=== PATIENT | female | born 1940 | race Caucasian/White ===

== ENCOUNTER 2024-01-04 22:51 | Inpatient (IN) | payer MEDICARE, OTHER, SELFPAY ==
--- NOTE | 2024-01-04 21:56 | XACV_ITS ---
Exam Room: [facility] Ht: 157 cm Wt: 73 kg BSA: 1.81 m2 Gender: Female : 1940 Any Known Allergies: No known allergies Exam Priority: Routine Procedure(s): Procedure Description: Diagnostic procedure Procedure Description: PCI procedure Procedure Description: Venous Graft Catheterization Procedure Description: ALEJO Graft Catheterization Procedure Description: Drug Eluting Coronary Stent Procedure Description: PTCA Procedure Description: Miscellaneous Procedure Description: ACT Procedure Description: Coronary Angiography Diagnostic Cath Status: Urgent Diagnostic Findings * INDICATION: NSTEMI/ Congestive heart failure/pulmonary edema. * Left Main has no significant disease. * Bypass grafts: * ALEJO to LAD * is atretic and does not supply any significant area. SVG to OM is occluded. SVG/radial graft to RCA is patent.. * Proximal Left Anterior Descending: critical 95% stenosis, MAREK: 3 flow. * Proximal Right Coronary Artery to Mid Right Coronary Artery: total occlusion, MAREK: 0 flow. * Distal Circumflex: critical 95% stenosis, MAREK: 2 flow. * 1st Diagonal: severe 90% stenosis, MAREK: 3 flow. * Coronary angiography shows right dominance. PCI Status: Urgent PCI Indication: NSTE - ACS Interventional Findings * Procedure detail: * We engaged left main artery with XB 3.5 guide catheter. IV heparin was administered to maintain anticoagulation. 0.014 run-through guidewire was used to first cross distal left circumflex artery stenosis * and was put in distal vessel. * We predilated the stenosis with 2.0 x 12 mm semicompliant balloon. This was followed by placement of 2.25 x 18 mm resolute Gl[place]y drug-eluting stent. We then turned our attention to LAD. Run-through guidewire was used to cross the stenosis and was put in distal vessel. We predilated the stenosis with 2.5x15 mm semicompliant balloon. This was followed by placement of 2.75 x 30 mm resolute Frakes drug-eluting stent in proximal LAD. At this time final angiogram was performed that showed excellent stent expansion, no residual stenosis and MAREK-3 flow. Guidewire and guide catheter were removed. Patient left the Motor Adjuster in a stable condition.. * Proximal Left Anterior Descendin% stenosis treated with a AB TREK 2.50X15 RX BALLOON, and MDT R GLENDY 2.75X30 PEGGY. 0% residual stenosis, MAREK: 3 flow. * Distal Circumflex: 95% stenosis treated with a AB MINI TREK 2.00X12 RX BALLOON, and MDT R GLENDY 2.25X18 PEGGY. 0% residual stenosis, MAREK: 3 flow. Conclusions 1. Critical proximal LAD 2. stenosis s/p successful revascularization with 1 stent. Critical 3. distal left circumflex artery stenosis. S/p revascularization with 1 stent.. 4. ALEJO to LAD is atretic. SVG to OM is occluded. RCA bypass graft is patent. 5. Proximal Left Anterior Descending was treated with a Balloon, and Drug Eluting Stent. 6. Distal Circumflex was treated with a Balloon, and Drug Eluting Stent. Recommendations * Dual antiplatelet therapy with aspirin and plavix. * High intensity statin therapy. * Outpatient cardiology follow up in 4 weeks. Interventional RX Recommendation: PCI w/o planned CABG Diagnostic RX Recommendation: PCI w/o planned CABG Anticoagulation: Heparin Pressures Phase:Rest AO : 112 / 64 ( 86 ) @ 6:12:42 PM 91 / 59 ( 75 ) @ 6:12:42 PM 149 / 61 ( 88 ) @ 6:12:42 PM 106 / 70 ( 81 ) @ 6:12:42 PM 96 / 55 ( 74 ) @ 6:12:42 PM Clinical Evaluation EBL: 5mL-10mL Procedural Details Procedure Consent Obtained. Pre-Procedure Time Out. Identified patient by full name and date of as verbalized by the patient/guarantor. Does the consent match the physician's order: Yes. Accurate & Complete Informed Consent: Yes. Inpatient/Outpatient History & Physical on Chart: Yes. If H&P is completed, is and addenduem needed: N/A; If yes, is the addendum complete: N/A. Visualize and Verify Site with Patient/Guarantor: N/A. Relevant Radiology Images available: N/A. The risks, benefits, and alternatives of sedation and/or procedure were discussed by physician. The patient agrees to continue. Procedure started. [facility] Clinical Fraility Score: 4: Vulnerable. Motor Adjuster Indications: ACS <= 24 hours/Unstable angina. Chest Pain Symptom Assessment: Typical Angina Symptoms. Cardiovascular Instability: No. Correct patient, site and procedure confirmed by cath team. PERRLA. Strong, equal hand it security administrator bilaterally. Lungs clear x 5 lobes. IV Site on Arrival: 20 gauge in the right hand. IV Site on Arrival: 22 gauge in the right anticubital. IV Fluids: 0.9% NaCl at KVO. 0 mL infused prior to lab asst. Pre Procedural Pulses: bilateral posterior tibial was Doppled. Pre Procedural Pulses: bilateral dorsalis pedis was Doppled. Oxygen started at 2liters/min via nasal canula. bilateral groins was prepped with chloroprep then draped in the usual sterile fashion. Physician notified. Baseline sample Acquired. HR: 87 BPM. Patient's family in the lab asst waiting room. Dr. Bower will update at the completion of the procedure. Equipment: 6F - Femoral. Cardiac Cath Pack. ACIST Manifold Kit Model BT 2000. Heparinized Saline (2 units/mL), 1000 mL bag. Kit, Micropuncture. Physician arrived. Physician scrubbed in. Immediate Pre-Procedure Time Out. Correct Patient: Yes; Correct Procedure: Yes; Correct Site: Yes; Correct Patient Position: Yes; Correct Supplies: Yes; Dried Flammable Prep: Yes; Blood Products Available: N/A;. Lidocaine 1% infiltrated to the right groin. Arterial access obtained with micropuncture set. A 5 lithuanian JL4 catheter in over the standard J wire. Multiple views taken of left coronary artery. O2 increased to a 100% NRB mask. Catheter removed over the standard wire. A 5 lithuanian JR4 catheter in over the standard J wire. Cine of the right coronary artery performed. Catheter redirected to the SVG-->RCA. SVG to RCA visualized. Catheter redirected to the RCA. Cine of the right coronary artery performed. Catheter redirected to the SVG-->CX. SVG to the CX occluded. Catheter redirected to the ALEJO-->LAD. ALEJO to LAD visualized. Catheter removed over the standard J wire. 6 lithuanian XB 3.5 guide catheter was inserted over the standrad J wire. Runthrough guidewire was advanced through the guide catheter to lesion in the distal Circ. ACT drawn. Results 223 seconds. Therapeutic limits - pre-heparin administration 90-150 seconds and monitoring heparin during a vascular procedure >250 seconds. Inflation number : 1 A AB MINI TREK 2.00X12 RX BALLOON was prepped and advanced across the Dist CX , then inflated to 8 VICKIE for 0:12 seconds. Inflation number: 2 The AB MINI TREK 2.00X12 RX BALLOON was reinflated across the Dist CX, to 8 VICKIE for 0:11 seconds. Inflation number: 3 The AB MINI TREK 2.00X12 RX BALLOON was reinflated across the Dist CX, to 8 VICKIE for 0:10 seconds. Inflation number: 4 The AB MINI TREK 2.00X12 RX BALLOON was reinflated across the Dist CX, to 10 VICKIE for 0:12 seconds. Balloon out. Results checked. Inflation Number : 5 A MDT R GLENDY 2.25X18 PEGGY -Lot Number# [id number] was prepped and advanced across the Dist CX. The stent was deployed at 12 VICKIE for 0:18 seconds. Exp. . Stent balloon out over wire. Results checked. Redirecting the Runthrough guidewire to the Prox LAD. Runthrough wire out. A new Runthrough guidewire was advanced through the guide catheter to lesion in the prox LAD. Inflation number : 1 A AB TREK 2.50X15 RX BALLOON was prepped and advanced across the Prox LAD , then inflated to 8 VICKIE for 0:16 seconds. Inflation number: 2 The AB TREK 2.50X15 RX BALLOON was reinflated across the Prox LAD, to 8 VICKIE for 0:07 seconds. Balloon out. Results checked. Inflation Number : 3 A MDAmira Leavitt GLENDY 2.75X30 PEGGY -Lot Number# [id number] was prepped and advanced across the Prox LAD. The stent was deployed at 12 VICKIE for 0:19 seconds. Exp. . Stent balloon out over wire. Results checked. ACT drawn. Results Out of range High. Guide catheter out over the standard J wire. right groin was prepped with chloroprep then draped in the usual sterile fashion. A Angio-Seal VIP (St. Del) was successful obtaining hemostatsis at the Right Femoral artery insertion site . Lot # [id number]. Exp. . O2 titrated back down throughout the procedure to 10 L via oxy mask. Post Procedure: Pulses reassessed and unchanged. PERRLA. Strong, equal hand it security administrator bilaterally. No VTE prophylaxis required. Medication's Wasted: Nitro = 50 mg. Medication's Wasted: Heparin = 2000 Units. Medication's Wasted: Other = Fentanyl 100 mcg. Total IV fluids: 78 mL. Post-op diagnosis: Critically severe Proximal LAD stenosis s/p PCI with one stent/Critically severe stenosis of the Distal CX s/p one stent. Complications: none. Estimated blood loss: 5mL-10mL. Responsiveness - Normal response to verbal stimuli; alert and oriented, PERRLA. Airway - Unaffected, no intervention required; spontaneous ventilation. Circulation: W/N/L, pulses unchanged. Nausea/Vomiting: No. Procedure completed. Patient transferred by bed to ICU. O2 increased to 10 L via Oximask. Vital chart was stopped. Access Site Site: Right Femoral artery Sheath Size: 6 Fr Hemostasis Method: Angio-Seal VIP (St. Del) Hemostasis Success: Successful Procedure Medications Start: 11:03 PM Stop: 11:03 PM Medication: Versed Amount: 1 mg Route: I.V. Start: 11:08 PM Stop: 11:08 PM Medication: Heparin Amount: 6000 units Route: I.V. Start: 11:24 PM Stop: 11:24 PM Medication: Versed Amount: 1 mg Route: I.V. Start: 11:27 PM Stop: 11: PM Medication: Heparin Amount: 2000 units Route: I.V. Start: 11:40 PM Stop: 11:40 PM Medication: Heparin Amount: 1000 units Route: I.V. Start: 12:02 AM Stop: 12:02 AM Medication: Plavix Amount: 300 mg Route: P.O. I, the attending physician, have reviewed and verified all procedure medications. Yes, all medications given per verbal order Report Signatures Finalized by Antonio Bower MD on 01/16/2024 12:05 PM
[2024-01-05] VITALS (57 sets, daily range): BP systolic 107–152; BP diastolic 51–83; PULSE 69–102; RESP 13–33; TEMP 35.7–36.9; O2SAT 61–96; BMI 29.4; BMI 30.6
--- NOTE | 2024-01-05 00:12 | PM.HP ---
Providers/Chief Complaint Admitting Physician: Antonio Bower M.D Primary Care Provider: Kasey Tejada MD Chief Complaint: Chest pain History of Present Illness Esperanza Camejo is a 83 year old female with past medical history of CAD s/p CABG several years ago, hypertension, gout, seizures who is transferred from outside hospital with concern of possible STEMI. Patient has been having shortness of breath for 4 to 5 days. It was worsening and today got significantly worse than before. EKG showed Q waves in inferior leads with questionable borderline ST elevation. Patient denies chest pain. Given worsening shortness of breath with dynamic EKG changes, we decided to proceed with urgent coronary angiogram. She also has been having nausea. Labs from outside hospital demonstrate creatinine is normal. He had a mildly elevated troponin of 0.08. NT proBNP was over 700. Review of Systems Narrative: CONSTITUTIONAL: No fever chills weight loss or gain or night sweats. [] HEENT: Normocephalic, atraumatic.[] RESPIRATORY: Shortness of breath CARDIOVASCULAR: Has shortness of breath GI: Has nausea FELT TIPPING MACHINE TENDER: No numbness, tingling, weakness or loss of function in any part of the body. [] MUSCULOSKELETAL: No knee or joint pain or rashes. [] Medications/Allergies Allergies Allergy/AdvReac Type Severity Reaction Status Date / Time No Known Allergies Allergy Verified 01/05/24 00:26 PFSH Acute PFSH: Medical History Frequent UTI Bladder prolapse Epilepsy Surgical History H/O cystopexy H/O: hysterectomy Hx of CABG Hx of total knee arthroplasty Family History Other CAD (coronary artery disease) Diabetes Social History Smoking and tobacco/nicotine status: never used tobacco/nicotine Alcohol intake: never Substance/Drug Use: never Marital status: / Physical Exam Narrative: GENERAL: Patient is alert, awake and oriented x3. [] NECK: No jugular vein distension. [] HEENT: No cyanosis. No icterus. No pallor. [] HEART: Regular S1 and S2. No murmur, rub or gallop. [] LUNGS: Diminshed air entry CENTRAL NERVOUS SYSTEM: Grossly nonfocal. [] EXTREMITIES: Lower extremities with 1+ edema bilaterally. A&P Assessment and plan (1) NSTEMI (non-ST elevated myocardial infarction): (2) Hypertension: (3) Seizures: Plan Patient symptoms have been going on for 4 to 5 days. EKG is showing inferior lead Q waves borderline ST elevation. However it is not consistent with ST elevation AK. We will proceed with urgent coronary angiogram. With mild elevation of troponin, presentation is consistent with NSTEMI. Loaded with aspirin and Plavix. Heparin bolus given. We will order echocardiogram. Will consult medicine team for medical management. Will administer Lasix dose. We will obtain labs including CBC, BMP, NT proBNP, D-dimer Attestations Medical Necessity Statement*: Care expected to cross 2 midnights. Patient has presented with NSTEMI and worsening shortness of breath. Plan for urgent coronary angiogram. Coding Level of Care Code Acute Code for Chg Fwd Diagnoses NSTEMI (non-ST elevated myocardial infarction) I21.4 Hypertension I10 Seizures R56.9
--- NOTE | 2024-01-05 00:13 | USCV_ITS ---
Esperanza Camejo Age: 83 Gender: F : 1940 Exam Date: 01/05/2024 08:31 Ordering Phys: Antonio Bower M.D ([email or web address]) Technologist: Steven Hammer [place] [facility] [place]: [place]I BP: 117 / 60 HR: Rhythm: Sinus Technical Quality: Adequate MEASUREMENTS (Male / Female) Normal Values 2D ECHO LVOT Diameter 2.0 cm LV Ejection Fraction MOD 2C 40.7 % LV Ejection Fraction 2C AL 0.0 % LA Diameter 3.8 cm RA Systolic Volume 4C AL 32.1 ml RA Systolic Volume 4C MOD 30.8 ml Aorta at Sinotubular Diameter 2.4 cm IVC Diameter 1.8 cm M-MODE LA Ao Ratio MM 1.3 AV Cusp Separation MM 1.7 cm DOPPLER AV Peak Velocity 141.0 cm/s LVOT Peak Velocity 117.0 cm/s AV Area Cont Eq vti 2.5 cm squared AV Area Cont Eq pk 2.6 cm squared MV Peak Velocity 499.0 cm/s MV Area PHT 4.5 cm squared Mitral E to A Ratio 2.0 TR Peak Velocity 247.0 cm/s TR Peak Gradient 24.4 mmHg TR Mean Velocity 186.0 cm/s TR Mean Gradient 15.4 mmHg TR Velocity Time Integral 53.0 cm PV Peak Velocity 133.0 cm/s RV Ejection Time 0.3 s FINDINGS Left Ventricle Left ventricle is normal size. LV systolic function is severely reduced with EF of 25-30%. Severe global hypokinesis. LV apical thrombus can not be ruled out Right Ventricle Normal in size. RV is moderately hypokinetic Right Atrium Normal in size Left Atrium Normal in size Mitral Valve Structurally normal mitral valve. Mild to moderate mitral regurgitation. Aortic Valve Grossly normal. Mild to moderate aortic regurgitation. Tricuspid Valve Mild tricuspid regurgitation. Insufficient TR jet to evaluate RVSP. Pulmonic Valve Not well visualized Pericardium Normal Aorta Normal in size IVC Appears to be normal CONCLUSIONS LV systolic function is severely reduced with EF of 25 to 30%. LV apical thrombus can not be ruled out. RV is moderately hypokinetic. Mild to moderate mitral regurgitation Mild to moderate aortic regurgitation Mild tricuspid regurgitation No comparison studies are available. Antonio Bower MD (Electronically Signed) Final Date: 05 January 2024 11:14 S
--- NOTE | 2024-01-05 00:13 | XRR_ITS ---
PROCEDURE INFORMATION: Exam: XR Chest Exam date and time: 01/05/2024 12:52 AM Age: 83 years old Clinical indication: Dyspnea; Additional info: Shortness of breath TECHNIQUE: Imaging protocol: Radiologic exam of the chest. Views: 1 view. COMPARISON: CR XR chest 2V* [id number] 07/20/2017 12:28 PM FINDINGS: Lungs: There is diffuse increase in interstitial markings. There is reticular/patchy opacification right middle lobe and left lower lobe/retrocardiac region. Pleural spaces: There is ellkb-[id number]-aksd-left blunting costophrenic angles. Heart/Mediastinum: There is interval increase in prominence of the cardiomediastinal silhouette. Bones/joints: Patient is status post sternotomy. Diffuse degenerative changes of the visualized osseous structures. Other findings: Multiple lines presumed outside the patient. There is bilateral hilar prominence. XR/XR chest 1V portable [id number] IMPRESSION: 1. Bilateral central hilar prominence, diffuse increase in interstitial markings, iqmpm-qpkvekv-wqqz-left small pleural effusions, reticular/patchy infiltrates of the right middle lobe and left lower lobe/retrocardiac region, findings of which are concerning for pulmonary edema, multifocal pneumonia, aspiration. Correlate with clinical presentation. 2. Interval increase in prominence of the cardiac silhouette, which may be due to positioning, however comparative radiograph has similar positioning, therefore acute pericardial effusion can not be ruled out, correlate with ultrasound if available.
[2024-01-05] MEDS: FUROsemide 10 mg/mL SDV 2mL 20 MG IVP (00:35)
--- NOTE | 2024-01-05 00:40 | ECG_ITS ---
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 Measurements Intervals Cowley Rate: 89 P: 48 GA: 191 QRS: 60 QRSD: 107 T: 61 QT: 371 QTc: 452 Interpretive Statements SINUS RHYTHM INFERIOR MYOCARDIAL INFARCTION , PROBABLY OLD [40+ ms Q WAVE AND/OR ST/T ABNORMALITY IN II/aVF] ANTEROLATERAL MYOCARDIAL INFARCTION , OF INDETERMINATE AGE [40+ ms Q WAVE IN I/aVL/V3-V6] Compared to ECG 07/20/2017 10:59:01 No significant changes Electronically Signed On 01-05-2024 10:10:49 DISPATCHER MOTOR VEHICLE by Antonio Bower M.D. [id number]
--- NOTE | 2024-01-05 00:42 | P.MISC_ITS ---
Miscellaneous Note Purpose of Documentation: Brief procedure note Note: [place] left main artery is patent. Proximal LAD has severe 95% stenosis. Status post PCI with 1 stent. Distal left circumflex artery had severe 95-99% stenosis. S/p PCI with 1 stent. [place] RCA is occluded with patent bypass graft. ALEJO to LAD is atretic not supplying any significant blood flow. SVG to circumflex artery is occluded. Transfer to ICU Dual antiplatelet therapy with aspirin and plavix Rest of plan per H&P
--- NOTE | 2024-01-05 01:14 | USR_ITS ---
PROCEDURE INFORMATION: Exam: US Duplex Lower Extremity Veins, Bilateral Exam date and time: 01/05/2024 8:10 AM Age: 83 years old Clinical indication: Screening exam; Assess for dvt TECHNIQUE: Imaging protocol: Real-time duplex ultrasound of the bilateral extremities with 2-D corona scale, color Doppler flow and spectral waveform analysis including responses to compression and other maneuvers (when performed) with image documentation. Complete exam focused on the lower extremity veins. COMPARISON: No relevant prior studies available. FINDINGS: Right deep veins: Unremarkable. The common femoral, femoral, proximal profunda femoral and popliteal veins are patent without thrombus. Normal Doppler waveforms. Normal compressibility and/or augmentation response. Left deep veins: Unremarkable. The common femoral, femoral, proximal profunda femoral and popliteal veins are patent without thrombus. Normal Doppler waveforms. Normal compressibility and/or augmentation response. Superficial veins: Greater saphenous veins at the saphenofemoral junctions are patent bilaterally without thrombus. Soft tissues: Unremarkable. US/[place] [id number] IMPRESSION: No evidence of deep vein thrombosis.
--- NOTE | 2024-01-05 01:14 | P.CONIM_ITS ---
Providers/Reason For Consult 2 Consulting Physician/Specialty*: Dr Bower/cardiology Reason for Consult*: Medical workup Attending Physician: Antonio Bower M.D Primary Care Provider: Kasey Tejada MD History of Present Illness History of Present Illness Pleasant 83-year-old lady with history of epilepsy, gout, CAD, status post CABG, mild chronic dyspnea had started to get much more dyspneic on exertion over the last week or so, but states that usually with sit down and rest and would improve, however, yesterday was getting short of breath even just at rest. Was initially assessed at [place], [place], where EKG showed question of possible ST elevation in 2 and 3, she was loaded with Plavix, given an aspirin, troponin I noted with mild elevation 0.08, BNP 766, afebrile, without leukocytosis. Transfer was arranged for cardiac evaluation and further management at [facility], here she was received by Dr. Bower, underwent coronary angiography and PCI with finding of patent left main, proximal LAD with severe stenosis 95%, stented with 1 stent, also noted distal LCx with severe 95-99% stenosis which was also treated with a stent. Bypass patent to occluded agdaagux RCA. Atretic ALEJO to LAD without significant blood flow. SVG to circumflex occluded. Echocardiogram, chest x-ray, D-dimer are requested. She is admitted to ICU. Hospitalist team is asked to evaluate for any additional causes of her shortness of breath. In ICU she is saturating 91% on 5 L nasal cannula. She states that she is not normally on oxygen. She denies ever having chest pain or pressure. She has not really had any cough, denies hemoptysis. Has had some clear sputum production which she figured was due to allergies although again no significant cough to speak of. Denies any dysphagia or choking with food or drink, no nausea or vomiting. Has not had any fever chills or systemic malaise. He is a never smoker. Denies any history of asthma or COPD. No sleep apnea. He does have some swelling in the left ankle although has had also some chronic swelling there ever since having veins corrected for bypasses, but recently also has been having some cramps. Review of Systems 2 Const: Denies: fever(s), chills, body aches or malaise ENMT: Denies: throat pain Card: Reports: edema (L ankle) and dyspnea on exertion; Denies: chest pain or pre-syncope Resp: Reports: dyspnea; Denies: productive cough, non-productive cough, pain on inspiration, change in phlegm color or hemoptysis GI: Denies: abdominal pain, nausea, vomiting, diarrhea, constipation, hematochezia or melena : Denies: flank pain, urinary frequency or hematuria Musc: Denies: back pain, joint swelling or joint redness Skin/Breast: Denies: rash or new lesions Neuro: Denies: headache(s) or confusion Medications/Allergies Home Medications Medication Instructions Recorded Confirmed Last Taken Type allopurinol 100 mg tablet 100 mg PO BEDTIME 01/05/24 01/05/24 2 Days Ago History ~01/03/24 aspirin 325 mg tablet 325 mg PO DAILY 01/05/24 01/05/24 2 Days Ago History ~01/03/24 metoprolol tartrate 25 mg tablet 25 mg PO BEDTIME 01/05/24 01/05/24 2 Days Ago History ~01/03/24 phenobarbital 32.4 mg tablet 32.4 mg PO BEDTIME 01/05/24 01/05/24 2 Days Ago History ~01/03/24 phenytoin sodium extended 100 mg 200 mg PO BEDTIME 01/05/24 01/05/24 2 Days Ago History capsule (Dilantin Extended) ~01/03/24 Allergies Allergy/AdvReac Type Severity Reaction Status Date / Time No Known Allergies Allergy Verified 01/05/24 00:26 PFSH Acute 2 PFSH: Medical History Frequent UTI Bladder prolapse Epilepsy Surgical History H/O cystopexy H/O: hysterectomy Hx of CABG Hx of total knee arthroplasty Family History Other CAD (coronary artery disease) Diabetes Social History Smoking and tobacco/nicotine status: never used tobacco/nicotine Alcohol intake: never Substance/Drug Use: never Marital status: / Vitals/I&O/Wt Last Vital Signs Temp 97.9 F 01/05/24 00:16 Pulse 90 01/05/24 00:50 Resp 20 H 01/05/24 00:50 BP 152/79 01/05/24 00:50 Pulse Ox 89 L 01/05/24 00:50 O2 Del Method Nasal Cannula 01/05/24 00:13 Weight last 48 hrs Weight 73.028 kg Physical Exam 2 Narrative: Accompanied by her grandson. Const: COMMON NORMALS: patient oriented x3 and alert GENERAL APPEARANCE: c ooperative ORIENTATION/CONSCIOUSNESS: Yes awake HENMT: COMMON NORMALS: oropharynx normal Neck/C-Spine: COMMON NORMALS: no JVD Resp: COMMON NORMALS: normal respiratory effort AUSCULTATION: diminished lung sounds Cardio: COMMON NORMALS: no JVD, regular rhythm, S1 normal heart sound present, S2 normal heart sound present and No murmurs present (Cardio) RHYTHM: regular rhythm HEART SOUNDS: S1 normal heart sound present and S2 normal heart sound present GI: COMMON NORMALS: Normal to inspection, nondistended, normoactive bowel sounds present, Soft to palpation and non-tender PALPATION: Yes Soft to palpation Extremity: COMMON NORMALS: no joint enlargement GENERAL: Yes edema (Mild edema L ankle) OTHER: R groin post-cath dressing, no swelling or pulsatile mass. RLE perfused. Neuro: COMMON NORMALS: patient oriented x3 and moves all extremities S ENSORIUM/ORIENTATION: Yes alert Skin: COMMON NORMALS: no rashes or lesions noted GENERAL SKIN EXAM: no rashes or lesions noted Data 01/05/24 01:25 01/05/24 01:25 A&P Assessment and plan (1) Acute respiratory failure with hypoxia: Progressive dyspnea on exertion over the last week, but in the last day shortness of breath at rest, currently requiring 5 L nasal cannula oxygen to maintain saturation of 90-91%. Tachypneic in the 20s. Not normally on oxygen. Denies past history of lung disease. Noted back in 2017 during admission did report mild chronic dyspnea, but this appears to be much worse. Reviewed vitals, CBC, CMP from outside hospital, no leukocytosis, afebrile. Reviewed NT- proBNP, troponin, reviewed cardiology note, discussed with cardiology. No obvious symptoms of pneumonia. Reviewed chest x-ray, on my interpretation bilateral interstitial changes edema versus more chronic fibrotic changes? Versus atypical infection? Discussed with her. Does have some mild B-lines, received 20 mg IV Lasix. Echocardiogram is pending, certainly possible myocardial dysfunction with cardiac ischemia, possible flash pulmonary edema, but otherwise no DVT, no orthopnea, only mild B-lines. Avoid fluid overload. Reassess volume status. Discussed with her some possibility of chronic condition as last x-ray we have was from back in 2017. I do not see that any of her medications should obviously contribute to ILD. Will assess for possible acute viral infection, assess respiratory viral panel. Additionally D-dimer on review now is back and noted abnormal at 1.26, will assess with CT angiogram of the chest for PE. Assess venous duplex of bilateral lower extremities for DVT. Continue oxygen support. Wean down as tolerating. (2) NSTEMI (non-ST elevated myocardial infarction): Status post coronary angiography and stenting of LAD and LCx. Continue post angiography care. Continue aspirin, Plavix. Pending TTE. Reviewed cardiology note, discussed with cardiology. Reassess renal function. Follow-up CBC. (3) Hypertension: Blood pressure 152/75. Metoprolol ER 25mg. Continue to optimize blood pressure. Plan Mild alk phos elevation: Mild alk phos elevation noted at outside hospital, 131. Reassess liver parameters. Epilepsy: Continue phenobarbital, phenytoin. Gout: Allopurinol Goals of care discussion: in case of cardiopulmonary arrest would want several attempts of resuscitation. Consult Attestations 2 Medical Necessity Statement: Admission of over 2 midnights anticipated for assessment management of acute respiratory failure with hypoxia, NSTEMI. Diagnoses Acute respiratory failure with hypoxia J96.01 NSTEMI (non-ST elevated myocardial infarction) I21.4 Hypertension I10
[2024-01-05 01:42] LABS: Basophils # 0.1 10^3/uL (0.0-0.1); Basophils % 0.3 %; Eosinophils % 0.1 %; Lymphocytes # 1.2 10^3/uL (0.8-4.8); Mean Corpuscular HGB Conc 32.1 g/dL (30-55); Mean Corpuscular Volume 99.8 fl (85-98); Mean Platelet Volume 9.7 fL (7.4-10.4); Monocytes # 0.7 10^3/uL (0.2-0.9); Monocytes % 4.5 %; Neutrophils % 86.8 %; Nucleated Red Blood Cells % 0 %; Platelet Count 310 10^3/cmm (157-399); Red Blood Count 4.31 10^6/uL (3.85-5.65); Red Cell Distribution Width 13.9 % (12.1-15.1); White Blood Count 15.09 10^3/uL (3.29-11.43)
[2024-01-05 01:58] LABS: D Dimer 1.26 ug/mLFEU (0-0.59)
--- NOTE | 2024-01-05 02:00 | CTR_ITS ---
PROCEDURE INFORMATION: Exam: CTA Chest With Contrast Exam date and time: 01/05/2024 2:43 AM Age: 83 years old Clinical indication: Other: Assess interstitial changes; Additional info: Assess for pe, assess interstitial changes TECHNIQUE: Imaging protocol: Computed tomographic angiography of the chest with contrast. Exam focused on the arteries. 3D rendering (Not supervised by radiologist): MIP and/or 3D reconstructed images were created by the technologist. Radiation optimization: All CT scans at this facility use at least one of these dose optimization techniques: automated exposure control; mA and/or kV adjustment per patient size (includes targeted exams where dose is matched to clinical indication); or iterative reconstruction. Contrast material: OMNI 350; Contrast volume: 80 ml; Contrast route: INTRAVENOUS (IV); COMPARISON: CR (CHEST, ) 01/05/2024 12:52 AM RADIATION DOSE METRICS: Total DLP (mGy-cm): 482.97 FINDINGS: Pulmonary arteries: Main pulmonary artery demonstrates fusiform enlargement just beyond the pulmonary valve measuring 4.1 x 3.8 cm (series 8, image 24) Aorta: Moderate to severe calcified atherosclerotic disease of the visualized aorta and its major branches. Lungs: There is diffuse septal thickening and increased peripheral interstitial markings. Pleural spaces: There are moderate sized bilateral pleural effusions with associated compressive atelectasis. Heart: Left atrial enlargement reaching up to 5.8 cm. Coronary arteries: Postprocedural changes of the coronary vasculature with residual severe calcified atherosclerotic disease. Lymph nodes: Unremarkable. No enlarged lymph nodes. Gallbladder and bile ducts: Patient is status post cholecystectomy. Pancreas: There is diffuse fatty atrophy of the pancreas. Adrenal glands: The left adrenal gland demonstrates an indeterminate round nodule which measures 2.3 x 2.5 cm. Kidneys and ureters: Symmetric perinephric stranding. Bones/joints: Patient is status post sternotomy. Severe degenerative changes of the visualized osseous structures. Contrast bolus timing is adequate for assessment of the pulmonary arterial vasculature. There is no luminal filling defect to suggest pulmonary embolus on this examination. Soft tissues: Unremarkable. Other findings: There are numerous calcified granuloma. CT/CT angio chest PE protcl [id number] IMPRESSION: 1. Findings of pulmonary edema/volume overload, superimposed infection can not be ruled out. 2. No pulmonary embolus. 3. There is fusiform enlargement of the main pulmonary artery just beyond the pulmonary valve suggesting possible underlying pulmonary valvular stenosis. 4. Indeterminate right adrenal nodule, with subtle ill-defined areas of hyperenhancement, suggesting hemorrhage, however neoplasm can not be definitively ruled out by this examination. Recommend outpatient CT adrenal protocol for further definitive assessment.
[2024-01-05 02:01] LABS: Alanine Aminotransferase 10 U/L (0-33); Albumin Level 3.8 g/dL (3.5-5.2); Alkaline Phosphatase 139 U/L (35-105); Anion Gap 16.9 (5-19); Aspartate Amino Transferase 42 U/L (0-32); Blood Urea Nitrogen 11 mg/dL (8-23); Calcium 8.7 mg/dL (8.5-10.5); Carbon Dioxide 23 mmol/L (22-29); Chloride 94 mmol/L (98-107); Globulin 3.6 g/dL (1.3-4.6); Glucose 147 mg/dL (65-115); Osmolality Calculated 272 mOsm/kg (285-295); Potassium 3.9 mmol/L (3.5-5.1); Sodium 130 mmol/L (136-145); Total Bilirubin 0.3 mg/dL (0.15-1.2); Total Protein 7.4 g/dL (6.6-8.7)
[2024-01-05 02:04] LABS: Troponin(5th) Baseline 697 ng/L (0-10)
[2024-01-05] MEDS: iohexol 350 mg/mL 500 mL Btl (per mL) IV (03:01)
[2024-01-05] MEDS: metoprolol succinate ER (24 HR) 25 mg Tablet PO ×2 (03:10→21:04)
[2024-01-05 04:24] LABS: ABG PCO2 42.6 mmHg (35-45); ABG PH Result 7.38 (7.35-7.45); Base Excess ABG -0.5 mmol/L (-2.0-2.0); Blood Gas Allen Test Pos; Blood Gas Operator Identificat JB; Blood Gas Sample Site Radial, right; Blood Gas Sample Type Arterial; HCO3 ABG 24.9 mmol/L (22-26); Oxygen Device NC; PO2 ABG 91.1 mmHg (80.0-100.0)
[2024-01-05 04:37] LABS: Troponin 5 2HR 1666 ng/L (0-10); Troponin 5 2HR Delta 969 ABS# (0-10)
[2024-01-05 05:28] LABS: Adenovirus Not Detected (NOT DETECT); Chlamydia Pneumoniae Not Detected (NOT DETECT); Coronavirus 229E,HKU1,NL63,OC4 Not Detected (NOT DETECT); Human Metapneumovirus Not Detected (NOT DETECT); Human Rhinovirus/Enterovirus Not Detected (NOT DETECT); Influenza A Not Detected (NOT DETECT); Influenza A H1 Not Detected (NOT DETECT); Influenza A H1-2009 Not Detected (NOT DETECT); Influenza A H3 Not Detected (NOT DETECT); Influenza B Not Detected (NOT DETECT); Mycoplasma Pneumoniae Not Detected (NOT DETECT); Parainfluenza Virus Type 1 Not Detected (NOT DETECT); Parainfluenza Virus Type 2 Not Detected (NOT DETECT); Parainfluenza Virus Type 3 Not Detected (NOT DETECT); Parainfluenza Virus Type 4 Not Detected (NOT DETECT); Respiratory Syncytial Virus A Not Detected (NOT DETECT); Respiratory Syncytial Virus B Not Detected (NOT DETECT); SARS-COV-2 Not Detected (NOT DETECT)
--- NOTE | 2024-01-05 05:31 | PC.NURSE ---
Dressing to right femoral cath site removed, noted to be saturated. No bruising or hematoma noted around site. New dressing applied. Will continue to monitor.
--- NOTE | 2024-01-05 05:38 | PC.NURSE ---
Called Dr. Bower and notified about critical 2 hr troponin and delta per Lali's instruction.
[2024-01-05] MEDS: clopidogrel 75 mg Tablet PO (08:05)
[2024-01-05] MEDS: aspirin 81 mg EC Tablet PO (08:05)
[2024-01-05 08:57] LABS: Troponin 5 6HR 2548 ng/L (0-10)
[2024-01-05 08:58] LABS: Troponin 5 6HR Delta 1851 ng/L (0-12)
--- NOTE | 2024-01-05 10:36 | P.PN_ITS ---
Subjective 2 Subjective: Patient doing better. Breathing has improved. CTA was performed overnight and did not show PE. Vitals/I&O/Wt Last Vital Signs Temp 96.2 F L 01/05/24 04:00 Pulse 69 01/05/24 10:00 Resp 19 H 01/05/24 10:00 BP 109/54 01/05/24 10:00 Pulse Ox 92 01/05/24 10:00 O2 Del Method Nasal Cannula 01/05/24 09:05 O2 Flow Rate 3 01/05/24 09:05 01/04/24 01/05/24 01/05/24 22:59 06:59 14:59 Output Total 1200 / 1200 Balance -1200 / -1200 Weight last 48 hrs Weight 167 lb 8 oz Weight 167 lb 8 oz Weight 161 lb Physical Exam 2 Narrative: GENERAL: Patient is alert, awake and oriented x3. [] NECK: No jugular vein distension. [] HEENT: No cyanosis. No icterus. No pallor. [] HEART: Regular S1 and S2. No murmur, rub or gallop. [] LUNGS: Has bilateral crackles. CENTRAL NERVOUS SYSTEM: Grossly nonfocal. [] EXTREMITIES: Lower extremities with 1+ edema bilaterally. Data 01/05/24 01:25 01/05/24 01:25 A&P Assessment and plan (1) NSTEMI (non-ST elevated myocardial infarction): (2) Hypertension: (3) Seizures: (4) Congestive heart failure: Plan Patient had PCI of proximal LAD and left circumflex artery yesterday. We will continue with aspirin and Plavix. She is volume overloaded. We will continue with diuresis with IV Lasix. Monitor I&O's. Monitor renal function ECHO ordered. Medicine team on board for management of medical issues Thank you for involving us with care of this patient. We will continue to follow. Please call with questions. Attestations 2 Medical Necessity Statement*: Care expected to cross 2 midnights. Patient has congestive heart failure and status post revascularization of LAD and left circumflex artery. Needs further diuresis. Coding Level of Care Code Acute Code for [facility] Diagnoses NSTEMI (non-ST elevated myocardial infarction) I21.4 Hypertension I10 Seizures R56.9 Congestive heart failure I50.9
[2024-01-05] MEDS: FUROsemide 10 mg/mL SDV 4mL 40 MG IVP (10:45)
--- NOTE | 2024-01-05 11:15 | USCV_ITS ---
Bashir Esperanza Age: 83 Gender: F : 1940 Exam Date: 01/05/2024 15:30 Ordering Phys: Antonio Bower M.D ([email or web address]) Technologist: Steven Hammer [place] [facility] [place]: assess for LV thrombus BP: 113 / 61 HR: 72 Rhythm: Sinus Technical Quality: Adequate MEASUREMENTS (Male / Female) Normal Values 2D ECHO LV Ejection Fraction MOD 2C 46.5 % LV Ejection Fraction 2C AL 46.3 % FINDINGS Left Ventricle Right Ventricle Right Atrium Left Atrium Mitral Valve Aortic Valve Tricuspid Valve Pulmonic Valve Pericardium Aorta IVC CONCLUSIONS There is a limited echocardiogram performed to assess LV systolic function and rule out LV thrombus. Contrast agent used. LV systolic function is borderline normal with EF of 50%. No regional wall motion abnormalities are seen. No LV apical thrombus seen. Compared to prior echocardiogram performed on 01/05/2024, LV systolic function has improved significantly. Antonio Bower MD (Electronically Signed) Final Date: 06 January 2024 15:29 S
[2024-01-05] MEDS: ondansetron 2 mg/ML SDV 2 mL 4 MG IVP ×2 (11:54→17:57)
--- NOTE | 2024-01-05 12:21 | P.PN_ITS ---
Subjective 2 Subjective: Stating that she is feeling much better Currently on 3 L down from 4 L nasal cannula Requesting Flowers catheter placement and she is afraid to get up and walk around Vitals/I&O/Wt Last Vital Signs Temp 96.2 F L 01/05/24 04:00 Pulse 69 01/05/24 10:00 Resp 19 H 01/05/24 10:00 BP 109/54 01/05/24 10:00 Pulse Ox 92 01/05/24 10:00 O2 Del Method Nasal Cannula 01/05/24 09:05 O2 Flow Rate 3 01/05/24 09:05 01/04/24 01/05/24 01/05/24 22:59 06:59 14:59 Output Total 1200 / 1200 1600 / 1600 Balance -1200 / -1200 -1600 / -1600 Weight last 48 hrs Weight 75.977 kg Weight 75.977 kg Weight 73.028 kg Physical Exam 2 Narrative: Awake and alert No active signs of fluid overload No significant crackles noted on lung auscultation Currently on 4 L S1, S2 Pleasant cooperative Urinary Catheter Management: Flowers: Cath Placed During This Visit: yes Urinary Catheter Date of Insertion: 01/05/24 Urinary Catheter Time of Insertion: 10:35 Data 01/05/24 01:25 01/05/24 01:25 A&P Assessment and plan (1) Hypertension: (2) Congestive heart failure: (3) NSTEMI (non-ST elevated myocardial infarction): (4) Seizures: (5) Hypoxia: Plan High D-dimer CT negative PE Patient has received a lot of contrast Monitor kidney function Continue diuresis Hypoxia related to CHF exacerbation Echo showing reduced ejection fraction Patient had 2 stents placed May need LifeVest before discharge Severe global hypokinesia Full code Cardiac diet Can be transferred out of ICU Attestations 2 Medical Necessity Statement*: Continue medical management Diagnoses Hypertension I10 Congestive heart failure I50.9 NSTEMI (non-ST elevated myocardial infarction) I21.4 Seizures R56.9 Hypoxia R09.02
[2024-01-05] MEDS: perflutren protein-a microsphr 0.22 mg/mL SDV 3 mL IV (15:59)
--- NOTE | 2024-01-05 16:23 | PC.NURSE ---
Report called to cardiac step down unit patient transferred via wheelchair on 2L NC. Patient belongings placed at bedside . Patient denies pain and is noted to be A&Ox4 at time of transfer. Kb, RN notifed of patients arrival to room 104. This nurse notified Mrs. Camejo's daughter of transfer of care.
[2024-01-05] MEDS: allopurinol 100 mg Tablet PO (21:04)
[2024-01-05] MEDS: phenytoin ER 100 mg Capsule 200 MG PO (21:04)
[2024-01-05] MEDS: PHENobarbital 32.4 mg Tablet 32.3999999999999986 MG PO (21:04)
[2024-01-06] VITALS (11 sets, daily range): BP systolic 97–125; BP diastolic 48–61; PULSE 68–79; RESP 15–27; TEMP 36.3–37.5; O2SAT 90–97
[2024-01-06 04:23] LABS: Basophils # 0.1 10^3/uL (0.0-0.1); Basophils % 0.5 %; Eosinophils # 0.2 10^3/uL (0.0-0.8); Eosinophils % 1.6 %; Hematocrit 40.7 % (36-47); Lymphocytes # 1.5 10^3/uL (0.8-4.8); Lymphocytes % 14.5 %; Mean Corpuscular HGB Conc 32.9 g/dL (30-55); Mean Corpuscular Hemoglobin 32.7 pg (27-33); Mean Corpuscular Volume 99.3 fl (85-98); Monocytes # 1.3 10^3/uL (0.2-0.9); Monocytes % 12.1 %; Neutrophils # 7.34 10^3/uL (1.8-7.7); Nucleated Red Blood Cells % 0 %; Platelet Count 290 10^3/cmm (157-399); Red Cell Distribution Width 14.3 % (12.1-15.1); White Blood Count 10.34 10^3/uL (3.29-11.43)
[2024-01-06 04:48] LABS: Alanine Aminotransferase 18 U/L (0-33); Albumin Level 3.5 g/dL (3.5-5.2); Alkaline Phosphatase 121 U/L (35-105); Anion Gap 14.7 (5-19); Aspartate Amino Transferase 79 U/L (0-32); Blood Urea Nitrogen 14 mg/dL (8-23); Calcium 8.8 mg/dL (8.5-10.5); Carbon Dioxide 24 mmol/L (22-29); Chloride 99 mmol/L (98-107); Creatinine Clr Calc Pharmacy 42.1057; Globulin 3.4 g/dL (1.3-4.6); Glucose 102 mg/dL (65-115); Magnesium 2.1 mg/dL (1.7-2.3); Osmolality Calculated 279 mOsm/kg (285-295); Potassium 3.7 mmol/L (3.5-5.1); Sodium 134 mmol/L (136-145); Total Bilirubin 0.4 mg/dL (0.15-1.2); Total Protein 6.9 g/dL (6.6-8.7)
[2024-01-06] MEDS: FUROsemide 40 mg Tablet PO (08:27)
[2024-01-06] MEDS: clopidogrel 75 mg Tablet PO (08:27)
[2024-01-06] MEDS: aspirin 81 mg EC Tablet PO (08:27)
[2024-01-06] MEDS: potassium chloride ER 20 mEq Tablet PO (08:27)
--- NOTE | 2024-01-06 09:18 | P.PN_ITS ---
Subjective 2 Subjective: Patient doing well. on room air. Repeat echocardiogram shows normal LV systolic function. Vitals/I&O/Wt Last Vital Signs Temp 98.7 F 01/06/24 08:27 Pulse 71 01/06/24 08:55 Resp 17 01/06/24 08:27 BP 125/61 01/06/24 08:27 Pulse Ox 94 01/06/24 08:55 O2 Del Method Nasal Cannula 01/06/24 08:55 O2 Flow Rate 2 01/06/24 08:55 01/05/24 01/06/24 01/06/24 22:59 06:59 14:59 Intake Total 476 / 476 Output Total 350 / 2500 Balance 476 / -1674 -350 / -2023 Weight last 48 hrs Weight 168 lb Weight 167 lb 8 oz Weight 167 lb 8 oz Weight 161 lb Physical Exam 2 Narrative: GENERAL: Patient is alert, awake and oriented x3. [] NECK: No jugular vein distension. [] HEENT: No cyanosis. No icterus. No pallor. [] HEART: Regular S1 and S2. No murmur, rub or gallop. [] LUNGS: Diminished air entry CENTRAL NERVOUS SYSTEM: Grossly nonfocal. [] EXTREMITIES: Lower extremities with 1+ edema bilaterally. Urinary Catheter Management: Flowers: Cath Placed During This Visit: yes Reason for Continuing Indwelling Catheter: Accurate Measurement of Urinary Output in Critically Ill Patients Urinary Catheter Date of Insertion: 01/05/24 Urinary Catheter Time of Insertion: 10:35 Data 01/07/24 02:33 01/07/24 02:33 A&P Assessment and plan (1) NSTEMI (non-ST elevated myocardial infarction): (2) Hypertension: (3) Seizures: (4) Congestive heart failure: Plan Patient had PCI of proximal LAD and left circumflex artery yesterday. Will continue aspirin and Plavix. High intensity statin therapy. Adding Entresto. Continue metoprolol. Repeat echocardiogram was performed with contrast to rule out LV thrombus. Patient's systolic function has significantly improved compared to baseline. Will keep on p.o. Lasix. If she stays stable with stable labs tomorrow, will be discharged home. Attestations 2 Medical Necessity Statement*: Care expected to cross [address] [facility]. Coding Level of Care Code Acute Code for [facility] Diagnoses NSTEMI (non-ST elevated myocardial infarction) I21.4 Hypertension I10 Seizures R56.9 Congestive heart failure I50.9
[2024-01-06] MEDS: sacubitril/valsartan 24-26 mg Tablet 1 EACH PO ×2 (10:46→18:29)
[2024-01-06] MEDS: perflutren protein-a microsphr 0.22 mg/mL SDV 3 mL IV (13:27)
--- NOTE | 2024-01-06 20:21 | PC.NURSE ---
Patient was bladder scanned after having minimal output after johnson catheter removal. Bladder scan revealed 380ml in the bladder and patient stated that she had no urge to urinate at the time. Less than 1 hour later patient walked to Bathroom and voided 200ml of dark concentrated urine. The nurse encouraged the patient to continue to drink water and to continue to use hat so her output could be monitored.
[2024-01-06] MEDS: PHENobarbital 32.4 mg Tablet 32.3999999999999986 MG PO (20:35)
[2024-01-06] MEDS: atorvastatin 40 mg Tablet PO (20:35)
[2024-01-06] MEDS: phenytoin ER 100 mg Capsule 200 MG PO (20:35)
[2024-01-06] MEDS: allopurinol 100 mg Tablet PO (20:35)
[2024-01-06] MEDS: metoprolol succinate ER (24 HR) 25 mg Tablet PO (20:35)
[2024-01-07] VITALS: BP 112/55; PULSE 70; RESP 18; TEMP 36.8; O2SAT 90
[2024-01-07 03:17] LABS: Basophils # 0.1 10^3/uL (0.0-0.1); Basophils % 0.6 %; Eosinophils # 0.3 10^3/uL (0.0-0.8); Eosinophils % 2.6 %; Hematocrit 39.4 % (36-47); Lymphocytes # 1.7 10^3/uL (0.8-4.8); Lymphocytes % 15.4 %; Mean Corpuscular HGB Conc 33.2 g/dL (30-55); Mean Corpuscular Hemoglobin 32.2 pg (27-33); Mean Corpuscular Volume 96.8 fl (85-98); Mean Platelet Volume 10.2 fL (7.4-10.4); Monocytes # 1.4 10^3/uL (0.2-0.9); Monocytes % 13.2 %; Neutrophils # 7.31 10^3/uL (1.8-7.7); Nucleated Red Blood Cells % 0 %; Platelet Count 287 10^3/cmm (157-399); Red Blood Count 4.07 10^6/uL (3.85-5.65); Red Cell Distribution Width 13.9 % (12.1-15.1); White Blood Count 10.75 10^3/uL (3.29-11.43)
[2024-01-07 03:41] LABS: Alanine Aminotransferase 13 U/L (0-33); Albumin Level 3.3 g/dL (3.5-5.2); Alkaline Phosphatase 113 U/L (35-105); Anion Gap 13.4 (5-19); Aspartate Amino Transferase 38 U/L (0-32); Blood Urea Nitrogen 18 mg/dL (8-23); Calcium 8.5 mg/dL (8.5-10.5); Carbon Dioxide 25 mmol/L (22-29); Chloride 96 mmol/L (98-107); Creatinine Clr Calc Pharmacy 42.1689; Globulin 3.2 g/dL (1.3-4.6); Glucose 113 mg/dL (65-115); Osmolality Calculated 275 mOsm/kg (285-295); Potassium 3.4 mmol/L (3.5-5.1); Sodium 131 mmol/L (136-145); Total Bilirubin 0.7 mg/dL (0.15-1.2); Total Protein 6.5 g/dL (6.6-8.7)
[2024-01-07 03:51] VITALS: BP 113/53; PULSE 67; RESP 19; TEMP 37.2; O2SAT 92
[2024-01-07 05:17] VITALS: PULSE 70
--- NOTE | 2024-01-07 07:36 | P.PN_ITS ---
Vitals/I&O/Wt Last Vital Signs Temp 98.9 F 01/07/24 03:51 Pulse 70 01/07/24 05:17 Resp 19 H 01/07/24 03:51 BP 113/53 01/07/24 03:51 Pulse Ox 92 01/07/24 03:51 O2 Del Method Room Air 01/07/24 03:51 O2 Flow Rate 2 01/06/24 08:55 01/06/24 01/07/24 01/07/24 22:59 06:59 14:59 Intake Total 460 / 932 Output Total 250 / 350 100 / 450 Balance 210 / 582 -100 / 482 Weight last 48 hrs Weight 158 lb 8 oz Weight 168 lb Physical Exam 2 Urinary Catheter Management: Flowers: Cath Placed During This Visit: yes, but has since been removed by the nurse Reason for Continuing Indwelling Catheter: Decision to DC Catheter Urinary Catheter Date of Insertion: 01/05/24 Urinary Catheter Time of Insertion: 10:35 Date Urinary Catheter Removed: 01/06/24 Time Urinary Catheter Discontinued: 09:15 Data 01/07/24 02:33 01/07/24 02:33 Coding Level of Care Code Acute Code for [facility]
--- NOTE | 2024-01-07 08:40 | PM.DCS ---
Discharge Providers Date of Admission: 01/04/24 22:51 Date of Discharge: January 07, 2024 Attending Provider at Admission: Antonio Bower M.D Attending Provider at Discharge: Antonio Bower M.D Primary Care Provider: Kasey Tejada MD Diagnoses at Discharge Discharge Diagnosis (1) NSTEMI (non-ST elevated myocardial infarction): Status: Inactive (2) Hypertension: Status: Inactive (3) Seizures: Status: Inactive (4) Congestive heart failure: Status: Inactive Reason for Visit Reason for Visit: Chest pain Brief History: 83 year old female with past medical history of CAD s/p CABG several years ago, hypertension, gout, seizures who is transferred from outside hospital with concern of possible STEMI. Patient has been having shortness of breath for 4 to 5 days. It was worsening and today got significantly worse than before. EKG showed Q waves in inferior leads with questionable borderline ST elevation. Patient denies chest pain. Given worsening shortness of breath with dynamic EKG changes, we decided to proceed with urgent coronary angiogram. She also has been having nausea. Labs from outside hospital demonstrate creatinine is normal. He had a mildly elevated troponin of 0.08. NT proBNP was over 700. Hospital Course Hospital Course Given the elevated troponin, EKG changes and pulmonary edema, we will proceed with coronary angiogram. She was found to have severe proximal LAD stenosis. ALEJO to LAD was atretic. She underwent successful revascularization with 1 stent to LAD. Distal left circumflex artery was also severely stenotic. She had 1 stent there as well. SVG to circumflex artery was occluded. SVG to RCA was patent. Echo showed severely reduced EF. She was diuresed. Was put on appropriate medical therapy. Repeat echocardiogram to rule out LV thrombus with contrast showed normalized LV systolic function. She was discharged home in a stable condition on dual antiplatelet therapy. Physical Exam Narrative: GENERAL: Patient is alert, awake and oriented x3. [] NECK: No jugular vein distension. [] HEENT: No cyanosis. No icterus. No pallor. [] HEART: Regular S1 and S2. No murmur, rub or gallop. [] LUNGS: Clear to auscultation. CENTRAL NERVOUS SYSTEM: Grossly nonfocal. [] EXTREMITIES: Lower extremities with 1+ edema bilaterally. Urinary Catheter Management: Flowers: Cath Placed During This Visit: yes, but has since been removed by the nurse Reason for Continuing Indwelling Catheter: Decision to DC Catheter Urinary Catheter Date of Insertion: 01/05/24 Urinary Catheter Time of Insertion: 10:35 Date Urinary Catheter Removed: 01/06/24 Time Urinary Catheter Discontinued: 09:15 Discharge Data Studies Completed and Pending Completed Studies During Hospitalization Category Date Time Status CTA chest [CT angio chest PE protcl [id number]] Stat Cat Scan 01/05/24 02:00 Completed XR chest 1V portable [id number] Routine Exams 01/05/24 00:13 Completed CV. echo complete* [id number] Routine Ultrasound 01/05/24 00:13 Completed CV. 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 Bilateral central hilar prominence, diffuse increase in interstitial markings, hxgto-[id number]-ruch-left small pleural effusions, reticular/patchy infiltrates of the right middle lobe and left lower lobe/retrocardiac region, findings of which are concerning for pulmonary edema, multifocal pneumonia, aspiration. Correlate with clinical presentation. 2. Interval increase in prominence of the cardiac silhouette, which may be due to positioning, however comparative radiograph has similar positioning, therefore acute pericardial effusion can not be ruled out, correlate with ultrasound if available. Venous Duplex 01/05/24 01:14 IMPRESSION: No evidence of deep vein thrombosis. Chest CTA 01/05/24 02:00 IMPRESSION: 1. Findings of pulmonary edema/volume overload, superimposed infection can not be ruled out. 2. No pulmonary embolus. 3. There is fusiform enlargement of the main pulmonary artery just beyond the pulmonary valve suggesting possible underlying pulmonary valvular stenosis. 4. Indeterminate right adrenal nodule, with subtle ill-defined areas of hyperenhancement, suggesting hemorrhage, however neoplasm can not be definitively ruled out by this examination. Recommend outpatient CT adrenal protocol for further definitive assessment. Laboratory Results WBC 10.75 10^3/uL (3.29-11.43) 01/07/24 02:33 RBC 4.07 10^6/uL (3.85-5.65) 01/07/24 02:33 Hgb 13.10 g/dL (11.27-16.99) 01/07/24 02:33 Hct 39.4 % (36-47) 01/07/24 02:33 MCV 96.8 fl (85-98) 01/07/24 02:33 MCH 32.2 pg (27-33) 01/07/24 02:33 MCHC 33.2 g/dL (30-55) 01/07/24 02:33 RDW 13.9 % (12.1-15.1) 01/07/24 02:33 Plt Count 287 10^3/cmm (157-399) 01/07/24 02:33 MPV 10.2 fL (7.4-10.4) 01/07/24 02:33 Neut % (Auto) 68.0 % 01/07/24 02:33 Lymph % (Auto) 15.4 % 01/07/24 02:33 Guadalupe % (Auto) 13.2 % 01/07/24 02:33 Eos % (Auto) 2.6 % 01/07/24 02:33 Baso % (Auto) 0.6 % 01/07/24 02:33 Neut # (Auto) 7.31 10^3/uL (1.8-7.7) 01/07/24 02:33 Lymph # (Auto) 1.7 10^3/uL (0.8-4.8) 01/07/24 02:33 Guadalupe # (Auto) 1.4 10^3/uL (0.2-0.9) H 01/07/24 02:33 Eos # (Auto) 0.3 10^3/uL (0.0-0.8) 01/07/24 02:33 Baso # (Auto) 0.1 10^3/uL (0.0-0.1) 01/07/24 02:33 Nucleated RBC % (auto) 0 % 01/07/24 02:33 Nucleated RBCs # 0.0 /100WBC 01/07/24 02:33 D-Dimer 1.26 ug/mLFEU (0-0.59) H 01/05/24 01:25 Specimen Type Arterial 01/05/24 03:59 Sample Site Radial, right 01/05/24 03:59 ABG pH 7.38 (7.35-7.45) 01/05/24 03:59 ABG pCO2 42.6 mmHg (35-45) 01/05/24 03:59 ABG pO2 91.1 mmHg (80.0-100.0) 01/05/24 03:59 ABG HCO3 24.9 mmol/L (22-26) 01/05/24 03:59 ABG Base Excess -0.5 mmol/L (-2.0-2.0) 01/05/24 03:59 Ezekiel Test Pos 01/05/24 03:59 Hematocrit 46.0 % (37-47) 01/05/24 03:59 O2 Delivery Device Nc 01/05/24 03:59 O2 Liters/Min 5.0 % 01/05/24 03:59 Makeup Sales Advisor ID Otny 01/05/24 03:59 Sodium 131 mmol/L (136-145) L 01/07/24 02:33 Potassium 3.4 mmol/L (3.5-5.1) L 01/07/24 02:33 Chloride 96 mmol/L (98-107) L 01/07/24 02:33 Carbon Dioxide 25 mmol/L (22-29) 01/07/24 02:33 Anion Gap 13.4 (5-19) 01/07/24 02:33 BUN 18 mg/dL (8-23) 01/07/24 02:33 Creatinine 1.0 mg/dL (0.5-0.9) H 01/07/24 02:33 GFR Calculation Not Reportable 01/07/24 02:33 Glucose 113 mg/dL (65-115) 01/07/24 02:33 Calculated Osmolality 275 mOsm/kg (285-295) L 01/07/24 02:33 Calcium 8.5 mg/dL (8.5-10.5) 01/07/24 02:33 Magnesium 2.1 mg/dL (1.7-2.3) 01/06/24 03:22 Total Bilirubin 0.7 mg/dL (0.15-1.2) 01/07/24 02:33 AST 38 U/L (0-32) H 01/07/24 02:33 ALT 13 U/L (0-33) 01/07/24 02:33 Alkaline Phosphatase 113 U/L (35-105) H 01/07/24 02:33 Troponin T Baseline 697 ng/L (0-10) H* 01/05/24 01:25 Troponin T 120 Minute 1666 ng/L (0-10) H 01/05/24 03:11 Delta Troponin T 969 ABS# (0-10) H* 01/05/24 03:11 Troponin T Hi Sens 6Hr 2548 ng/L (0-10) H 01/05/24 07:13 Troponin T Hi Sens 6Hr Delta 1851 ng/L (0-12) H* 01/05/24 07:13 Total Protein 6.5 g/dL (6.6-8.7) L 01/07/24 02:33 Albumin 3.3 g/dL (3.5-5.2) L 01/07/24 02:33 Globulin 3.2 g/dL (1.3-4.6) 01/07/24 02:33 Adenovirus (PCR) Not detected (NOT DETECT) 01/05/24 01:30 C. pneumoniae DNA (PCR) Not detected (NOT DETECT) 01/05/24 01:30 Coronavirus 229E (PCR) Not detected (NOT DETECT) 01/05/24 01:30 Human Metapneumovir PCR Not detected (NOT DETECT) 01/05/24 01:30 Influenza A (H1) PCR Not detected (NOT DETECT) 01/05/24 01:30 Influ A (H1/09) PCR Not detected (NOT DETECT) 01/05/24 01:30 Influenza A (H3) PCR Not detected (NOT DETECT) 01/05/24 01:30 Influenza Type A (PCR) Not detected (NOT DETECT) 01/05/24 01:30 Influenza Type B (PCR) Not detected (NOT DETECT) 01/05/24 01:30 M. pneumoniae (PCR) Not detected (NOT DETECT) 01/05/24 01:30 Parainfluenza 1 (PCR) Not detected (NOT DETECT) 01/05/24 01:30 Parainfluenza 2 (PCR) Not detected (NOT DETECT) 01/05/24 01:30 Parainfluenza 3 (PCR) Not detected (NOT DETECT) 01/05/24 01:30 Parainfluenza 4 (PCR) Not detected (NOT DETECT) 01/05/24 01:30 RSV Type A (PCR) Not detected (NOT DETECT) 01/05/24 01:30 RSV Type B (PCR) Not detected (NOT DETECT) 01/05/24 01:30 Entero/Rhino (PCR) Not detected (NOT DETECT) 01/05/24 01:30 SARS-CoV-2 (PCR) Not detected (NOT DETECT) 01/05/24 01:30 Vitals Last Vital Signs Temp 98.9 F 01/07/24 03:51 Pulse 70 01/07/24 05:17 Resp 19 H 01/07/24 03:51 BP 113/53 01/07/24 03:51 Pulse Ox 92 01/07/24 03:51 O2 Del Method Room Air 01/07/24 03:51 O2 Flow Rate 2 01/06/24 08:55 Discharge Plan Discharge Patient Disposition: Home Condition: Stable Prescriptions: New aspirin 81 mg Tablet,Delayed Release (Dr/Ec) 81 mg PO DAILY Qty: 90 3RF furosemide 40 mg Tablet 20 mg PO DAILY@0800 Qty: 90 2RF clopidogrel 75 mg Tablet 75 mg PO DAILY Qty: 90 3RF Klor-Con M20 20 mEq Tablet,Er Particles/Crystals 20 meq PO DAILY PRN (Reason: only with lasix) Qty: 30 2RF metoprolol succinate 25 mg Tablet Extended Release 24 Hr 25 mg PO BEDTIME Qty: 90 3RF Entresto 24-26 mg Tablet 1 tab PO BID Qty: 60 4RF Continued phenobarbital 32.4 mg Tablet 32.4 mg PO BEDTIME allopurinol 100 mg Tablet 100 mg PO BEDTIME Dilantin Extended 100 mg Capsule 200 mg PO BEDTIME Discontinued metoprolol tartrate 25 mg Tablet 25 mg PO BEDTIME aspirin 325 mg Tablet 325 mg PO DAILY Discharge Orders: Discharge Order (Routine); Ordered 01/07/24 Ordered By: Antonio Bower Other Ambulatory Orders: CT abdomen pelvis w con* [id number] (Routine) Timeframe: 2 Weeks Facility: [facility] - Location: [facility] Ordered By: Jennifer Menchaca Referrals: Kasey Tejada MD [Primary Care Provider] - 01/18/24 10:00 am Gloria Mejia FNP [Nurse Practitioner] - 4-7 days (We have notified your physician's clinic of the need for a follow-up appointment to be scheduled. If you have not heard from them within the next 2 business days, please call them directly. ) Discharge Diet: Cardiac Discharge Activity: Increase activity as tolerated Patient Instructions: Furosemide (By mouth) (Lasix), Potassium Chloride (By mouth) (K-Dur, K-Mariana, K-Tab, German Mur), Aspirin (By mouth), Clopidogrel (By mouth) (Plavix), Sacubitril/Valsartan (By mouth) (Entresto), Coronary Angioplasty (DC), CHF Stoplight, Opioid Safety, Post Angiogram Home Care Instructions Activity Restrictions/Additional Instructions: There is an incidental finding of adrenal nodule we are giving you CT scan referral which you can do within 2 weeks to make sure if you need further investigation you have right adrenal nodule Discharge Attestations Time Spent in Discharge Care*: less than 30 min Quality Metrics Clinical Quality Measures [ Acute Myocardial Infaction { Clinical Trial Participant: No; Contraindication to aspirin: None; Aspirin prescribed; Contraindication to statin: None; Statin prescribed;}] Coding Level of Care Code Acute Code for [facility] Diagnoses NSTEMI (non-ST elevated myocardial infarction) I21.4 Hypertension I10 Seizures R56.9 Congestive heart failure I50.9
[2024-01-07 08:41] VITALS: BP 113/53; PULSE 72; RESP 18; TEMP 36.6; O2SAT 94
[2024-01-07] MEDS: FUROsemide 40 mg Tablet PO (08:46)
[2024-01-07] MEDS: sacubitril/valsartan 24-26 mg Tablet 1 EACH PO (08:47)
[2024-01-07] MEDS: potassium chloride ER 20 mEq Tablet PO (08:47)
[2024-01-07] MEDS: clopidogrel 75 mg Tablet PO (08:47)
[2024-01-07] MEDS: aspirin 81 mg EC Tablet PO (08:47)
[2024-01-07 10:33] VITALS: BP 107/45; PULSE 69; RESP 21; O2SAT 94
--- NOTE | 2024-01-07 10:38 | PC.SOCIAL ---
Pg 2 IMM Explained to pt Pg 2 IMM. No questions voiced. Provided pt a copy. Initialed, dated, & timed a copy & placed in chart.
--- NOTE | 2024-01-07 11:05 | PC.CHAP ---
Pastoral Care Encounter/Spiritual Assessment Type of Contact [] Declined instructor weaving visit [] Patient/Family/Request visit [] Outpatient visit [] Follow-up visit [] Physician referral [] Code/Alert [x] Routine visit [] Staff referral [] Actively dying [] Patient sleeping [] Family support [] [] Out of room [] Palliative care [] [] Receiving care in room [] Pre-surgical visit [] Trauma [] Long length of stay [] ICU visit [] Other: Relational/Emotional Strength [] Patient feels connected with others/family/visitors/staff [] Distress [] Loneliness/isolation [] Abandonment Spirituality of Patient [x] Person of Chelsey [] Attends Roman Catholic of their Chelsey [x] Believes in Prayer [x] Reads Bible or Restoration materials [] There are Spiritual issues to be addressed Relationship Mgr Interventions [x] Prayer [x] Active listening [] Non-anxious presence [] Spiritual/emotional support [] Crisis/trauma care [] Spiritual counseling [] Bereavement support [] Provided bereavement packet [] Provided Bible/devotional materials [] Provided toy/stuffed animal, coloring book to patient or family member [] Provided Communion [] Anointing/[place] [] Salvation [x] Completed spiritual assessment [] Other: Impact on Illness or Injury [] Angry [] Fearful [] Anxious [] Often cries [] Exhaustion [] Unable to work [] Unable to attend jew [] Unable to walk/stand [] Unable to read [] Unable to drive [] Unable to eat/drink [] Unable to sleep [] Unable to be with family [] Patient intubated [] Other: Summary Time spent with patient 5 min
== END 2024-01-07 11:13 | disposition home or self-care (01) | DRG 321 ==
LOC: ICU 01-05 08:06 → CSU 01-05 16:50
PROVIDERS: Internal Medicine; Admitting Provider Internal Medicine; PCP Internal Medicine; Visit Provider Internal Medicine
PROC: B2111ZZ Fluoroscopy of Multiple Coronary Arteries using Low Osmolar Contrast (ICD-10-PCS; principal; 2024-01-04 23:00)
PROC: B2111ZZ Fluoroscopy of Multiple Coronary Arteries using Low Osmolar Contrast (ICD-10-PCS; 2024-01-04 23:00)
DX: I21.4 Non-ST elevation (NSTEMI) myocardial infarction (principal); J96.01 Acute respiratory failure with hypoxia; M1A.9XX0 Chronic gout, unspecified, without tophus (tophi); G40.909 Epilepsy, unspecified, not intractable, without status epilepticus; I25.10 Atherosclerotic heart disease of native coronary artery without angina pectoris; Z95.1 Presence of aortocoronary bypass graft; I50.9 Heart failure, unspecified; I11.0 Hypertensive heart disease with heart failure
CPT/HCPCS: 36415; 51702; 71045; 71275; 80053; 82803; 83735; 84484; 85025; 85347; 85378; 87486; 87581; 87633; 93005; 93306; 93455; 93970; 94760; 96361; 96365; 96376; 99152; 99153; C1725; C1760; C1769; C1874; C1887; C1894; C8924; C9600; C9601; J1644; J1940; J2250; J2405; J3010; J3490; J7030; Q9956; Q9967

== ENCOUNTER → 2024-02-19 09:40 | Outpatient (BNVA) | payer MEDICARE, OTHER, SELFPAY | PROVIDERS: PCP Internal Medicine; Visit Provider Nurse Practitioner Family | DX: I25.10 Atherosclerotic heart disease of native coronary artery without angina pectoris (principal); Z86.73 Personal history of transient ischemic attack (TIA), and cerebral infarction without residual deficits; I11.0 Hypertensive heart disease with heart failure; I50.9 Heart failure, unspecified | CPT/HCPCS: 36415; 80048; 83880; 99214 ==

== ENCOUNTER 2024-03-24 13:47 | Outpatient (CLI) | payer MEDICARE, OTHER, SELFPAY ==
--- NOTE | 2024-03-24 14:15 | USCV_ITS ---
Bashir Esperanza Age: 83 Gender: F : 1940 Exam Date: 03/24/2024 14:03 Ordering Phys: Gloria Mejia Technologist: Exam Location[place] [facility] [place] Indication: ef BP: 120 / 70 HR: Rhythm: Sinus Technical Quality: Adequate MEASUREMENTS (Male / Female) Normal Values 2D ECHO LVOT Diameter 2.3 cm LV Ejection Fraction MOD 2C 46.6 % LV Ejection Fraction 2C AL 47.9 % LA Diameter 4.2 cm RA Systolic Volume 4C AL 33.3 ml RA Systolic Volume 4C MOD 32.3 ml IVC Diameter 1.2 cm FINDINGS Left Ventricle Right Ventricle Right Atrium Left Atrium Mitral Valve Aortic Valve Tricuspid Valve Pulmonic Valve Pericardium Aorta IVC CONCLUSIONS Limited echocardiogram performed to assess LV systolic function. LV systolic function is borderline normal with EF of 50 to 55%. Antonio Bower MD (Electronically Signed) Final Date: 26 Mar 2024 16:16 S
== END 2024-03-24 13:48 | disposition home or self-care (01) ==
LOC: RAD 13:48
PROVIDERS: PCP Internal Medicine; Visit Provider Nurse Practitioner Family
DX: I50.22 Chronic systolic (congestive) heart failure (principal)
CPT/HCPCS: 93308

== ENCOUNTER → 2024-05-23 10:43 | Outpatient (BNVA) | payer MEDICARE, OTHER, SELFPAY | PROVIDERS: PCP Internal Medicine; Visit Provider Internal Medicine Cardiovascular Disease | DX: I25.10 Atherosclerotic heart disease of native coronary artery without angina pectoris (principal); I11.0 Hypertensive heart disease with heart failure; I50.22 Chronic systolic (congestive) heart failure; Z86.73 Personal history of transient ischemic attack (TIA), and cerebral infarction without residual deficits; I25.2 Old myocardial infarction | CPT/HCPCS: 99214 ==

== ENCOUNTER 2025-04-11 08:21 | Emergency (ER) | payer MEDICARE, OTHER, SELFPAY ==
[2025-04-11 08:32] VITALS: BP 116/49; PULSE 76; RESP 17; TEMP 36.9; O2SAT 91; BMI 22.8
--- NOTE | 2025-04-11 08:34 | CTR_ITS ---
PROCEDURE INFORMATION: Exam: CT Left Lower Extremity Without Contrast, Knee Exam date and time: 04/11/2025 8:52 AM Age: 84 years old Clinical indication: Injury or trauma; Fall; Blunt trauma; Knee; Left TECHNIQUE: Imaging protocol: CT of the left lower extremity without contrast was performed. Exam focused on the knee. Radiation optimization: All CT scans at this facility use at least one of these dose optimization techniques: automated exposure control; mA and/or kV adjustment per patient size (includes targeted exams where dose is matched to clinical indication); or iterative reconstruction. COMPARISON: No relevant prior studies available. RADIATION DOSE METRICS: Total DLP (mGy-cm): 391.07 FINDINGS: Bones/joints: There is a subtle nondisplaced, mildly impacted fracture involving the lateral tibial plateau. A fracture line extends from this site inferiorly along the anterior tibial cortex to the tibial tubercle. Large lipohemarthrosis at the knee. Moderate to severe osteoarthritis most prominent in the medial compartment. Probable medial and lateral collateral ligament sprains. Soft tissues: Acute strain of the vastus intermedius muscle. Mild ventral soft tissue swelling. CT/CT knee LT wo con* [id number] IMPRESSION: 1. Subtle nondisplaced, mildly impacted fracture involving the lateral tibial plateau. A fracture line extends from this site inferiorly along the anterior tibial cortex to the tibial tubercle. 2. Acute strain of the vastus intermedius muscle. 3. Probable medial and lateral collateral ligament sprains. 4. Large lipohemarthrosis at the knee. 5. Moderate to severe osteoarthritis most prominent in the medial compartment. 6. Mild ventral soft tissue swelling.
--- NOTE | 2025-04-11 08:36 | W.ED.EXTPRO ---
HPI - Extremity Problem General: Chief complaint: Extremity Injury, Lower Stated complaint: left knee swelling Time Seen by Provider: 04/11/25 08:23 Source: patient Mode of arrival: ambulatory Limitations: no limitations History of Present Illness: 84-year-old female states she had a table fall onto her left knee yesterday she been having swelling and pain to that knee states pain sharp in nature rates it a 7 out of 10 she is not able to bear weight or bend the leg. Denies any other injuries denies any hip pain Associated symptoms: Deny chest pain, fever(s) or rash Related Data Home Medications ?Medication ?Instructions ?Recorded ?Confirmed allopurinol 100 mg tablet 100 mg PO BEDTIME 01/05/24 05/23/24 phenobarbital 32.4 mg tablet 32.4 mg PO BEDTIME 01/05/24 05/23/24 phenytoin sodium extended 100 mg 200 mg PO BEDTIME 01/05/24 05/23/24 capsule (Dilantin Extended) atorvastatin 40 mg tablet 40 mg PO DAILY 02/19/24 05/23/24 Previous Rx's ?Medication ?Instructions ?Recorded aspirin 81 mg tablet,delayed 81 mg PO DAILY #90 tabs 01/06/24 release clopidogrel 75 mg tablet 75 mg PO DAILY #90 tabs 01/06/24 furosemide 40 mg tablet 20 mg (1/2 x 40 mg) PO DAILY@0800 01/06/24 #90 tabs potassium chloride 20 mEq 20 meq PO DAILY PRN only with 01/06/24 tablet,extended lasix #30 tabs release(part/cryst) (Klor-Con M) metoprolol succinate 25 mg 12.5 mg (1/2 x 25 mg) PO BEDTIME 02/29/24 tablet,extended release 24 hr #90 tabs hydrocodone 5 mg-acetaminophen 325 1 tab PO Q6H PRN pain #14 tabs 04/11/25 mg tablet Allergies Allergy/AdvReac Type Severity Reaction Status Date / Time No Known Allergies Allergy Verified 05/23/24 11:02 Review of Systems Const: Denies: fever(s), chills, body aches or change in appetite ENMT: Denies: throat pain or dental pain Card: Denies: chest pain Resp: Denies: dyspnea GI: Denies: abdominal pain, nausea, vomiting or diarrhea Musc: Reports: extremity pain; Denies: neck pain or back pain Skin/Breast: Denies: rash Neuro: Denies: headache(s) PFSH ED PFSH: Medical History NSTEMI (non-ST elevated myocardial infarction) Coronary artery disease Hypoxia Congestive heart failure Acute respiratory failure with hypoxia Seizures Hypertension Frequent UTI Bladder prolapse Epilepsy Surgical History H/O cystopexy H/O: hysterectomy Hx of CABG Hx of total knee arthroplasty Family History Other CAD (coronary artery disease) Diabetes Social History Smoking and tobacco/nicotine status: never used tobacco/nicotine Alcohol intake: never Substance/Drug Use: never Marital status: / Physical Exam Const: COMMON NORMALS: no acute distress, patient oriented x3 and healthy appearing HENMT: COMMON NORMALS: normocephalic HEAD & SCALP: normocephalic Eye: COMMON NORMALS: conjunctivae normal CONJUNCTIVA: Yes conjunctivae normal Neck/C-Spine: COMMON NORMALS: full ROM and supple Chest: COMMONS NORMALS: normal inspection of the chest Resp: COMMON NORMALS: normal respiratory effort Extremity: NARRATIVE EXTREMITY EXAM: Tenderness noted to left knee swelling noted distal pulses sensation intact Neuro: COMMON NORMALS: patient oriented x3, moves all extremities and no focal motor deficits Psych: COMMON NORMALS: mental status grossly normal, Normal thought process present and cooperative THOUGHT PROCESS: Normal thought process present Skin: COMMON NORMALS: no rashes or lesions noted and no wounds GENERAL SKIN EXAM: no rashes or lesions noted Course Vital Signs: Vital signs: Vital Signs Temperature 98.4 F 04/11/25 08:32 Pulse Rate 76 04/11/25 08:32 Respiratory Rate 17 04/11/25 08:32 Blood Pressure 116/49 04/11/25 08:32 Pulse Oximetry 91 04/11/25 08:32 Oxygen Delivery Me thod Room Air 04/11/25 08:32 MDM - Extremity (Nontraumatic) Medical Decision Making Patient presents here with knee pain does have a tibial plateau fracture spoke to orthopedist will place in knee immobilizer she is to be nonweightbearing she is to follow-up with orthopedics return if worsening Medical Records I reviewed the patient's medical records. Lab Data Radiology Impressions Knee CT 04/11/25 08:34 IMPRESSION: 1. Subtle nondisplaced, mildly impacted fracture involving the lateral tibial plateau. A fracture line extends from this site inferiorly along the anterior tibial cortex to the tibial tubercle. 2. Acute strain of the vastus intermedius muscle. 3. Probable medial and lateral collateral ligament sprains. 4. Large lipohemarthrosis at the knee. 5. Moderate to severe osteoarthritis most prominent in the medial compartment. 6. Mild ventral soft tissue swelling. All radiology interpretation(s) finalized by discharge Discharge Plan Discharge Patient Disposition: Home Clinical Impression: Closed fracture of tibial plateau Condition: Stable Prescriptions: New hydrocodone-acetaminophen 5-325 mg tablet 1 tab PO Q6H PRN (Reason: pain) Qty: 14 0RF No Action atorvastatin 40 mg tablet 40 mg PO DAILY metoprolol succinate 25 mg tablet extended release 24 hr 12.5 mg PO BEDTIME Qty: 90 3RF phenobarbital 32.4 mg Tablet 32.4 mg PO BEDTIME allopurinol 100 mg Tablet 100 mg PO BEDTIME Dilantin Extended 100 mg Capsule 200 mg PO BEDTIME aspirin 81 mg Tablet,Delayed Release (Dr/Ec) 81 mg PO DAILY Qty: 90 3RF furosemide 40 mg Tablet 20 mg PO DAILY@0800 Qty: 90 2RF clopidogrel 75 mg Tablet 75 mg PO DAILY Qty: 90 3RF Klor-Con M20 20 mEq Tablet,Er Particles/Crystals 20 meq PO DAILY PRN (Reason: only with lasix) Qty: 30 2RF Discharge Orders: Discharge ED (Routine); Ordered 04/11/25 Ordered By: Álvaro Nagy Referrals: Sebastian Robles MD [Physician, Orthopedics] - 1-3 days Kasey Tejada MD [Primary Care Provider, Internal Medicine] Discharge Diet: Advance as tolerated Discharge Activity: Limit activity as instructed and Use walker/crutches as instructed Patient Instructions: Leg Fracture (ED), Opioid Safety Print Language: Bangladeshi Coding Level of Care Code ED Biller for Neil Brownlee
[2025-04-11] MEDS: HYDROcodone-acetaminophen 5-325 mg Tablet 1 TAB PO (08:40)
--- NOTE | 2025-04-13 07:59 | DCPLANNER ---
messaged ortho for er f/u
== END 2025-04-11 10:03 | disposition home or self-care (01) ==
PROVIDERS: Emergency Provider Emergency Medicine; PCP Internal Medicine
DX: S82.145A Nondisplaced bicondylar fracture of left tibia, initial encounter for closed fracture (principal); Z79.02 Long term (current) use of antithrombotics/antiplatelets; Z79.82 Long term (current) use of aspirin; Z95.1 Presence of aortocoronary bypass graft; I25.10 Atherosclerotic heart disease of native coronary artery without angina pectoris; I11.0 Hypertensive heart disease with heart failure; I50.9 Heart failure, unspecified; W20.8XXA Other cause of strike by thrown, projected or falling object, initial encounter
CPT/HCPCS: 29530; 73700; 99284; J9999

== ENCOUNTER → 2025-04-14 14:21 | Outpatient (BNVA) | payer MEDICARE, OTHER, SELFPAY | PROVIDERS: PCP Internal Medicine; Visit Provider Orthopaedic Surgery | DX: S82.142A Displaced bicondylar fracture of left tibia, initial encounter for closed fracture (principal); W20.8XXA Other cause of strike by thrown, projected or falling object, initial encounter | CPT/HCPCS: 73562; 99204 ==

== ENCOUNTER → 2025-04-27 10:05 | Outpatient (BNVA) | payer MEDICARE, OTHER, SELFPAY | PROVIDERS: PCP Internal Medicine; Visit Provider Orthopaedic Surgery | DX: S82.122A Displaced fracture of lateral condyle of left tibia, initial encounter for closed fracture (principal); X58.XXXA Exposure to other specified factors, initial encounter | CPT/HCPCS: 73562; 99213 ==

== ENCOUNTER → 2025-05-12 11:35 | Outpatient (BNVA) | payer MEDICARE, OTHER, SELFPAY | PROVIDERS: PCP Internal Medicine; Visit Provider Orthopaedic Surgery | DX: M25.562 Pain in left knee (principal); S82.123D Displaced fracture of lateral condyle of unspecified tibia, subsequent encounter for closed fracture with routine healing; X58.XXXD Exposure to other specified factors, subsequent encounter | CPT/HCPCS: 73562; 99213 ==